=== PATIENT | female | born 1955 | race Caucasian/White ===

== ENCOUNTER 2017-06-16 20:06 | Emergency (ER) | payer OTHER ==
[~2017-06-16] VITALS: Ht 157.5 cm; Wt 74.8 kg
[2017-06-16 20:07] VITALS: BP 155/100
[2017-06-16] MEDS ORDERED: LISINOPRIL20 MG PO (20:12)
[2017-06-16] MEDS ORDERED: MAXZIDE-25 MG1 EACH PO (20:13)
[2017-06-16] MEDS ORDERED: ARMOUR THYROID60 M1 (20:13)
[2017-06-16] MEDS ORDERED: SYNTHROID100 MCG PO (20:13)
[2017-06-16] MEDS ORDERED: VIIBRYD40 MG (20:13)
[2017-06-16] MEDS ORDERED: ALORA1 EAC1 TOP (20:14)
[2017-06-16] MEDS ORDERED: CLONIDINE0.1 (20:15)
[2017-06-16] MEDS ORDERED: PROGESTERONE100 MG (20:15)
[2017-06-16 21:56] LABS: HIV-1 P24 AG Nonreactive (Nonreactive)
[2017-06-19 00:11] LABS: HEP B SURFACE Ab(ANTI-HBS Reactive (()); HEPATITIS C VIRUS AB <0.1 (0.0-0.9)
== END 2017-06-16 22:43 | disposition home or self-care (01) ==
LOC: ER 20:06
PROVIDERS: Emergency Medicine
DX: S69.82XA Other specified injuries of left wrist, hand and finger(s), initial encounter (principal); I10 Essential (primary) hypertension; Z20.5 Contact with and (suspected) exposure to viral hepatitis; Z98.890 Other specified postprocedural states; W46.0XXA Contact with hypodermic needle, initial encounter; Y93.89 Activity, other specified; Y92.89 Other specified places as the place of occurrence of the external cause; Y99.8 Other external cause status; Z91.018 Allergy to other foods

== ENCOUNTER → 2019-05-08 | Outpatient (CLI) | payer OTHER ==
[~2019-05-08] MED LIST: ALORA1 EAC1 TOP; ARMOUR THYROID60 M1; CLONIDINE0.1; LISINOPRIL20 MG PO; MAXZIDE-25 MG1 EACH PO; PROGESTERONE100 MG; SYNTHROID100 MCG PO; VIIBRYD40 MG
== END ==
LOC: RAD 09:26
DX: S09.90XA Unspecified injury of head, initial encounter (principal); G23.8 Other specified degenerative diseases of basal ganglia; R90.82 White matter disease, unspecified; X58.XXXA Exposure to other specified factors, initial encounter; Y93.89 Activity, other specified; Y92.89 Other specified places as the place of occurrence of the external cause; Y99.8 Other external cause status

== ENCOUNTER 2019-05-27 18:46 | Emergency (ER) | payer OTHER ==
[~2019-05-27] VITALS: Ht 162.6 cm; Wt 83.9 kg
[2019-05-27 19:13] LABS: URINE BILIRUBIN NEGATIVE (Negative); URINE BLOOD NEGATIVE (Negative); URINE CLARITY CLEAR; URINE COLOR YELLOW; URINE GLUCOSE-RANDOM* NEGATIVE (Negative); URINE KETONES 1+ (Negative); URINE LEUKOCYTES-REFLEX NEGATIVE (Negative); URINE NITRITE-REFLEX NEGATIVE (Negative); URINE PROTEIN (DIPSTICK) NEGATIVE (Negative); URINE SPECIFIC GRAVITY 1.025 (1.005-1.035); URINE UROBILINOGEN 0.2 E.U./dl (0.2-1.0)
[2019-05-27 19:42] LABS: ANION GAP 9 mmol/L (7-16); BUN 18 mg/dL (7-18); CALCIUM 9.3 mg/dL (8.5-10.1); CHLORIDE 102 mmol/L (98-107); CO2 28 mmol/L (21-32); GLUCOSE 147 mg/dL (74-106); POTASSIUM 3.8 mmol/L (3.5-5.1); SODIUM 139 mmol/L (136-145)
[2019-05-27 19:53] LABS: ALBUMIN 4.2 g/dL (3.4-5.0); LIPASE 99 U/L (73-393); SGOT 28 U/L (15-37); SGPT 44 U/L (30-65); TOTAL BILIRUBIN 0.4 mg/dL (<0.1-1.0); TOTAL PROTEIN 7.5 g/dL (6.4-8.2); TROPONIN-I <0.06 ng/mL (<0.06)
[2019-05-27] MEDS ORDERED: NAPROSYN500 MG PO (20:24)
[2019-05-27] MEDS ORDERED: ANUSOL-HC25 MG RECTAL (20:24)
[2019-05-27] MEDS ORDERED: ONDANSETRON ODT8 MG PO (20:24)
[2019-05-27 20:57] VITALS: BP 187/97
--- NOTE | 2019-05-29 15:05 | EKG ---
[address] [place] [address] ELECTROCARDIOGRAM REPORT Name: DEWAYNE NEIL [id number] Admission: 05/27/19 Attend Phys: Discharge: 05/27/19 Date of : 59 Report #: [id number] THIS REPORT FOR: //name// [facility] ED Test Date: 2019-05-27 Test Time: 19:36:47 Pat Name: DEWAYNE NEIL Department: Room: Gender: F Mechanical Maintenance Engineer: Maryann : 1955 Requested By: Dillon Pal Order Number: [id number] MD: Allen Baldwin Measurements Intervals [place] Rate: 77 P: 18 GA: 157 QRS: -41 QRSD: 113 T: 1 QT: 422 QTc: 478 Interpretive Statements Sinus rhythm Left anterior fascicular block Borderline T abnormalities, anterior leads No previous ECG available for comparison Electronically Signed On 05-29-2019 15:05:41 CDT by Allen Baldwin [email or web address] <ELECTRONICALLY SIGNED> By: Allen Baldwin MD 05/29/19 1505 D: 09/1933 35 Allen Baldwin MD /ROB
== END 2019-05-27 20:58 | disposition home or self-care (01) ==
LOC: ER 18:46
PROVIDERS: Emergency Medicine
DX: R10.32 Left lower quadrant pain (principal); R10.31 Right lower quadrant pain; R19.7 Diarrhea, unspecified; I10 Essential (primary) hypertension; E66.9 Obesity, unspecified; Z68.31 Body mass index [BMI] 31.0-31.9, adult; Z98.890 Other specified postprocedural states; Z90.89 Acquired absence of other organs; Z91.018 Allergy to other foods

== ENCOUNTER → 2019-06-08 | Outpatient (CLI) | payer OTHER ==
[~2019-06-08] VITALS: Ht 162.6 cm; Wt 82.6 kg
[~2019-06-08] MED LIST changes: +ANUSOL-HC25 MG RECTAL; -ARMOUR THYROID60 M1; +ARMOUR THYROID60 M1 PO; -CLONIDINE0.1; +CLONIDINE0.1 PO; +LABETALOL HCL100 MG PO; +NAPROSYN500 MG PO; +NORFLEX100 MG PO; +ONDANSETRON ODT8 MG PO; +SYNTHROID75 MCG PO; +TRULICITY1.5 MG/0.5 SUBQ
--- NOTE | 2019-06-09 17:06 | PATH ---
[facility] [place] [address] PATHOLOGY RPT PROCEDURE Name: SUSIE NEIL Room #: REG ELIZABETH Chuyita.#: [id number] Admission: 06/08/19 Date of : 59 Discharge: Report #: [id number] Path Case #: [id number] [facility] Accession Number: [id number] . 01 Material submitted: . PART A: duodenum - DUODENAL BIOPSY R/O CELIAC PART B: stomach - ANTRUM BIOPSY R/O H PYLORI PART C: esophagus - DISTAL ESOPHAGUS R/O BARRETTS. Modifiers: distal PART D: ileum - ILEUM BIOPSY R/O CROHNS PART E: colon - RANDOM COLON BIOPSY R/O MICROSCOPIC COLITIS PART F: splenic flexure - SPLENIC FLEXURE POLYP PART G: colon - DESCENDING COLON INFLAMMATION. Modifiers: descending . 01 Clinical history: . Abdominal pain, nausea, bloody stool, gastritis, esophagitis, diverticulitis A. Rule out celiac B. Rule out H. pylori C. Rule out Jimenez's D. Rule out Crohn's E. Rule out microscopic colitis . 02 Diagnosis: A. Small bowel mucosa, duodenum R/O celiac, endoscopic biopsy: - Nonspecific changes including focal lamina propria hemorrhage as well as reactive changes. - Negative for villous blunting or increase in intraepithelial lymphocytes. . B. Gastric mucosa, antrum R/O H. pylori, endoscopic biopsy: - Mild chronic inflammation. - Negative for intestinal metaplasia or atrophy. - Negative for Helicobacter pylori (properly controlled immunohistochemical stain performed). . C. 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 - Negative for dysplasia. - Squamous mucosa with mild esophagitis. . D. Small bowel mucosa, ileum R/O Crohn's, endoscopic biopsy: - Small bowel mucosa with no significant diagnostic abnormalities. - Peyer's patch. . E. Large intestinal mucosa, random colon, endoscopic biopsy: - Focal nonspecific reactive hyperplastic changes. [address] [address] PATHOLOGY RPT PROCEDURE Name: SUSIE NEIL Room #: REG [facility] Chuyita.#: [id number] Admission: 06/08/19 Date of : 59 Discharge: Report #: [id number] Path Case #: [id number] - Negative for microscopic colitis. - Negative for active colitis. - Negative for dysplasia or malignancy. . F. Polyp, splenic flexure polyp, endoscopic biopsy: - Inflamed hyperplastic polyp. - Negative for dysplasia. . G. Large intestinal mucosa, descending colon inflammation, endoscopic biopsy: - Reactive hyperplastic changes with minimal increase in cellularity of the lamina propria. - Negative for increase in fibrosis. - Negative for active colitis. - Negative for dysplasia or malignancy. (IUV:lakshmi; 06/09/2019) QMS 06/09/2019 1348 Local . 02 Comment: C. The above diagnosis of Jimenez's esophagus is made due to presence of intestinal metaplasia and with the assumption that the biopsies were obtained from the columnar mucosa in the distal esophagus located at least 1 cm proximal to the top of the gastric folds as per the 2016 ACG guidelines. . E and G: Features are nonspecific, and may be due to a resolved episode of colitis, medication/drug-induced changes, bowel preparation, as well as chronic diverticulitis. Please correlate clinically and follow-up as indicated. (IUV:lakshmi; 06/09/2019) . 02 Electronically signed: . Ketty Corbin MD, Pathologist NPI- [id number] . 01 Gross description: . A. The specimen is received in formalin, labeled "Grussing, Susie, duodenal BX", is an irregular segment of fontaine soft tissue measuring 0.5 cm in greatest dimension. Entirely submitted in A1. . B. The specimen is received in formalin, labeled "Grussing, Susie, antrum BX", are two irregular segments of fontaine soft tissue measuring 0.3 cm and 0.5 cm in greatest dimension. Entirely submitted in B1. . C. The specimen is received in formalin, labeled "Grramírezing, Susie, distal esophagus BX", are few irregular fragments of perdue-fontaine soft tissue measuring 0.7 x 0.5 x 0.1 cm in aggregate. Entirely submitted in C1. [facility] [address] [place] [address] PATHOLOGY RPT PROCEDURE Name: SUSIE NEIL Room #: REG [facility]#: [id number] Admission: 06/08/19 Date of : 59 Discharge: Report #: [id number] Path Case #: [id number] . D. The specimen is received in formalin, labeled "Grussing, Susie, ileum BX", are two irregular segments of fontaine soft tissue measuring 0.2 cm and 0.3 cm in greatest dimension. Entirely submitted in D1. . E. The specimen is received in formalin, labeled "Grussing, Susie, random colon BX", are two irregular segments of fontaine soft tissue measuring 0.5 cm in greatest dimension each. Entirely submitted in E1. . F. The specimen is received in formalin, labeled "Grussing, Susie, splenic flexure polyp", is a segment of fontaine soft tissue measuring 0.2 cm in greatest dimension. Entirely submitted in F1. . G. The specimen is received in formalin, labeled "Grussing, Susie, descending colon, inflammation", are three irregular fragments of fontaine soft tissue measuring 0.5 x 0.4 x 0.1 cm in aggregate. Entirely submitted in G1. ([facility]; 06/08/2019) [facility] 06/08/[address] [place] [address] . 02 Pathologist provided ICD-10: K29.50, K22.70, K20.9, K63.5 . 02 CPT . 965116, 328208, 903903, 001514, 490223, 076317, 022736, V22366 Specimen Comment: A courtesy copy of this report has been sent to Specimen Comment: , . Specimen Comment: Report sent to / DR NICHOLE Performed at: [address], [place], [place] [id number] MD Sarwat Smith MD Phone: [phone] Performed at: [address] [id number] MD Ketty Corbin MD Phone: [phone]
== END | disposition home or self-care (01) ==
LOC: GI 11:52
DX: K62.5 Hemorrhage of anus and rectum (principal); K63.5 Polyp of colon; K57.30 Diverticulosis of large intestine without perforation or abscess without bleeding; K64.8 Other hemorrhoids; K29.50 Unspecified chronic gastritis without bleeding; K22.70 Barrett's esophagus without dysplasia; K20.9 Esophagitis, unspecified; K22.2 Esophageal obstruction; K44.9 Diaphragmatic hernia without obstruction or gangrene; I10 Essential (primary) hypertension; E78.5 Hyperlipidemia, unspecified; E03.9 Hypothyroidism, unspecified; Z98.890 Other specified postprocedural states; Z79.899 Other long term (current) drug therapy
CPT/HCPCS: 62110; 62900

== ENCOUNTER → 2019-08-03 | Outpatient (CLI) | payer OTHER ==
[~2019-08-03] VITALS: Ht 170.2 cm; Wt 81.6 kg
--- NOTE | 2019-08-06 11:07 | PATH ---
[facility] [address] [place] [address] PATHOLOGY RPT PROCEDURE Name: SUSIE NEIL Room #: REG ELIZABETH Boogie.#: [id number] Admission: 08/03/19 Date of : 59 Discharge: Report #: [id number] Path Case #: [id number] [facility] Accession Number: [id number] . 01 Material submitted: . esophagus - BIOPSY OF DISTAL ESOPHAGUS HX OF BARRETTS. Modifiers: distal . 01 Clinical history: . None provided . 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 - LOW GRADE DYSPLASIA IDENTIFIED; INDEFINITE FOR HIGH GRADE DYSPLASIA. - Squamous mucosa with mild esophagitis. . (IUV:lakshmi; 08/04/2019) QMS 08/06/2019 1021 Local . 02 Comment: Due to the presence of extensive inflammation identified as well as the the nuclear changes within the mucosa the findings are considered "indefinite for high grade dysplasia". . Dr. Carl Cotton and Dr. Rebeca Peterson have seen marketing sales representative slide of this case and concurs with my diagnosis. (IUV:lakshmi; 08/04/2019) . 02 Electronically signed: . Ketty Corbin MD, Pathologist NPI- [id number] . 01 Gross description: . Received in formalin labeled "Susie Neil, BX of distal esophagus, Hx of Jimenez's," are 3 segments of fontaine soft tissue measuring 0.6 x 0.6 x 0.3 cm in aggregate dimensions and ranging from 0.3 to 0.4 cm in maximum dimension. The specimen is submitted entirely in cassette A1. ([facility]; 08/03/2019) TOB/TOB 08/03/2019 2224 Local . 02 Pathologist provided ICD-10: K22.70, K20.9 . 02 CPT . [id number] [address] [address] PATHOLOGY RPT PROCEDURE Name: SUSIE NEIL Room #: REG [place] Boogie.#: [id number] Admission: 08/03/19 Date of : 59 Discharge: Report #: [id number] Path Case #: [id number] Specimen Comment: A courtesy copy of this report has been sent to [phone] Specimen Comment: Report sent to / DR NICHOLE Performed at: 01 [facility] [place] [id number] [facility] [address], [place], [place] [id number] MD Sarwat Smith MD Phone: [phone] Performed at: [address], [place], [place] [id number] MD Ketty Corbin MD Phone: [phone]
== END ==
LOC: GI 10:51
DX: K22.710 Barrett's esophagus with low grade dysplasia (principal); K20.9 Esophagitis, unspecified; K44.9 Diaphragmatic hernia without obstruction or gangrene; R12 Heartburn; I10 Essential (primary) hypertension; E11.9 Type 2 diabetes mellitus without complications; E03.9 Hypothyroidism, unspecified; E07.9 Disorder of thyroid, unspecified; Z98.890 Other specified postprocedural states; Z79.899 Other long term (current) drug therapy; Z79.4 Long term (current) use of insulin
CPT/HCPCS: 62110; 62900

== ENCOUNTER → 2019-08-21 | Outpatient (CLI) | payer OTHER | LOC: CAT 08:24 | PROVIDERS: Internal Medicine Gastroenterology | DX: Z01.812 Encounter for preprocedural laboratory examination (principal); R10.84 Generalized abdominal pain; K76.0 Fatty (change of) liver, not elsewhere classified; Z87.19 Personal history of other diseases of the digestive system; Z79.899 Other long term (current) drug therapy ==

== ENCOUNTER → 2019-09-24 | Outpatient (CLI) | payer OTHER | END | disposition home or self-care (01) | LOC: GI 06:21 | DX: K55.9 Vascular disorder of intestine, unspecified (principal); Z79.899 Other long term (current) drug therapy; Z98.890 Other specified postprocedural states ==

== ENCOUNTER → 2019-10-02 | Outpatient (CLI) | payer OTHER | LOC: ULTRA 15:22 | DX: K80.20 Calculus of gallbladder without cholecystitis without obstruction (principal) ==

== ENCOUNTER 2019-10-20 07:35 | Day surgery (SDC) | payer OTHER ==
[~2019-10-20] VITALS: Ht 162.6 cm; Wt 78.0 kg
[~2019-10-20 07:35] MED LIST changes: +LEVO-T100 MCG PO
[2019-10-20 08:25] LABS: MCH 27.2 pg (26.0-34.0); MCHC 32.5 g/dL (28.0-37.0); MCV 83.5 fL (80.0-100.0); RBC 5.15 mil/uL (4.20-5.00); RDW 15.2 % (10.5-14.5); WBC 7.1 thou/uL (4.0-11.0)
[2019-10-20 08:33] LABS: CALCIUM 9.6 mg/dL (8.5-10.1); CREATININE 1.1 mg/dL (0.6-1.0); POTASSIUM 3.9 mmol/L (3.5-5.1)
[2019-10-20 08:38] LABS: ALBUMIN 4.3 g/dL (3.4-5.0); TOTAL BILIRUBIN 0.5 mg/dL (<0.1-1.0); TOTAL PROTEIN 8.1 g/dL (6.4-8.2)
[2019-10-20 08:54] VITALS: BP 105/59
[2019-10-20] MEDS ORDERED: HYDROCODON-ACE1 EAC7 PO (13:09)
[2019-10-20] MEDS ORDERED: MIRALAX17 GM PO (13:09)
[2019-10-20] MEDS ORDERED: COLACE 100 MG100 MG PO (13:09)
[2019-10-20 13:58] VITALS: BP 105/59
[2019-10-20] MEDS ORDERED: PERCOCET 5-3251 EACH PO (14:06)
--- NOTE | 2019-10-21 17:07 | PATH ---
[facility] [address] [place] [address] PATHOLOGY RPT PROCEDURE Name: SUSIE NEIL Room #: DEP [facility]..#: [id number] Admission: 10/20/19 Date of : 59 Discharge: 10/20/19 Report #: [id number] Path Case #: [id number] [facility] Accession Number: [id number] . 01 Material submitted: . gallbladder - GALLBLADDER WITH STONE . 01 Clinical history: . Calculus of gallbladder without cholecystitis without obstruction . 02 Diagnosis: Gallbladder, cholecystectomy: - Mild chronic cholecystitis. - Cholelithiasis. . (IUV:mml; 10/21/2019) QL 10/21/2019 1349 Local . 02 Electronically signed: . Ketty Corbin MD, Pathologist NPI- [id number] . 01 Gross description: . The specimen is received in formalin, labeled "Susie Neil, gallbladder with stone". Received is a previously opened gallbladder measuring 9.5 x 2.8 x 1.0 cm in greatest dimensions displaying a pink-fontaine to pink-perdue serosal surface. Opening the specimen reveals a velvety, pink-fontaine mucosa with mild cholesterolosis with a gallbladder wall thickness of 0.1 cm. A single light green, granular calculus is present, and no masses or lesions are noted grossly. Phytopathologist sections, to include the proximal margin, are submitted in cassette A1. ([facility]; 10/20/2019) QAC/QAC 10/20/2019 1639 Local . 02 Microscopic: . . . 02 Pathologist provided ICD-10: K80.10 . 02 CPT . 946248 Specimen Comment: Report sent to Performed at: [address] [id number] MD Sarwat Smith MD Phone: [phone] [address] [place] [address] PATHOLOGY RPT PROCEDURE Name: SUSIE NEIL Room #: DEP [facility] Chuyita.#: [id number] Admission: 10/20/19 Date of : 59 Discharge: 10/20/19 Report #: [id number] Path Case #: [id number] Performed at: [address] [id number] MD Ketty Corbin MD Phone: [phone]
== END 2019-10-20 14:30 | disposition home or self-care (01) ==
LOC: OR 07:35 → TBA 07:35 → OR 10:02
PROVIDERS: Surgery
DX: K80.10 Calculus of gallbladder with chronic cholecystitis without obstruction (principal); I10 Essential (primary) hypertension; E11.9 Type 2 diabetes mellitus without complications; E03.9 Hypothyroidism, unspecified; Z98.890 Other specified postprocedural states; Z79.899 Other long term (current) drug therapy
CPT/HCPCS: 50010; 50101; 50249; 50411; 50555; 50558; 51489; 52265; 52266; 53307; 53310; 53312; 54022; 54118; 55245; 56462; 56525; 56526; 62110; 62900; 70005

== ENCOUNTER → 2020-04-13 | Outpatient (CLI) | payer OTHER ==
[~2020-04-13] MED LIST changes: +COLACE 100 MG100 MG PO; +HYDROCODON-ACE1 EAC7 PO; +MIRALAX17 GM PO; +PERCOCET 5-3251 EACH PO
== END ==
LOC: CAT 09:35
PROVIDERS: ATTEND Family Medicine
DX: K57.32 Diverticulitis of large intestine without perforation or abscess without bleeding (principal); D25.9 Leiomyoma of uterus, unspecified

== ENCOUNTER 2020-06-03 17:58 | Emergency (ER) | payer OTHER ==
[~2020-06-03] VITALS: Ht 162.6 cm; Wt 78.0 kg
[2020-06-03 19:30] VITALS: BP 163/79
== END 2020-06-03 19:30 | disposition home or self-care (01) ==
LOC: ER 17:58
DX: R19.7 Diarrhea, unspecified (principal); Z20.828 Contact with and (suspected) exposure to other viral communicable diseases; I10 Essential (primary) hypertension; E03.9 Hypothyroidism, unspecified; Z98.890 Other specified postprocedural states; Z79.899 Other long term (current) drug therapy; Z91.018 Allergy to other foods

== ENCOUNTER → 2020-06-13 | Outpatient (CLI) | payer OTHER | LOC: LAB 06-10 14:48 | PROVIDERS: ATTEND Hospitalist | DX: Z20.828 Contact with and (suspected) exposure to other viral communicable diseases (principal) ==

== ENCOUNTER → 2020-08-17 | Outpatient (CLI) | payer OTHER | LOC: LAB 01:12 → EH 01:12 | PROVIDERS: ATTEND Specialist | DX: Z20.828 Contact with and (suspected) exposure to other viral communicable diseases (principal) ==

== ENCOUNTER → 2020-08-23 | Outpatient (CLI) | payer OTHER | LOC: LAB 14:58 | PROVIDERS: ATTEND Specialist | DX: Z20.828 Contact with and (suspected) exposure to other viral communicable diseases (principal) ==

== ENCOUNTER → 2020-08-23 | Outpatient (CLI) | payer OTHER ==
[2020-08-23 14:31] LABS: BASOPHILS 1.3 % (0.0-2.0); EOSINOPHILS 4.1 % (0.0-3.0); HEMOGLOBIN 14.4 gm/dL (12.0-15.0); LYMPHOCYTES 22.7 % (24.0-44.0); MCHC 32.8 g/dL (28.0-37.0); MCV 85.5 fL (80.0-100.0); MONOCYTES 11.5 % (1.0-8.0); PLATELET COUNT 306 thou/uL (150-400); POLYS 60.4 % (36.0-66.0); RBC 5.14 mil/uL (4.20-5.00); RDW 15.5 % (10.5-14.5); URINE BILIRUBIN NEGATIVE (Negative); URINE BLOOD TRACE (Negative); URINE CLARITY CLEAR; URINE COLOR YELLOW; URINE GLUCOSE-RANDOM* NEGATIVE (Negative); URINE KETONES NEGATIVE (Negative); URINE LEUKOCYTES-REFLEX NEGATIVE (Negative); URINE NITRITE-REFLEX NEGATIVE (Negative); URINE PROTEIN (DIPSTICK) NEGATIVE (Negative); URINE SPECIFIC GRAVITY <= 1.005 (1.005-1.035); URINE UROBILINOGEN 0.2 E.U./dl (0.2-1.0); WBC 6.5 thou/uL (4.0-11.0)
[2020-08-23 15:12] LABS: ALBUMIN 4.1 g/dL (3.4-5.0); CALCIUM 9.6 mg/dL (8.5-10.1); CREATININE 0.8 mg/dL (0.6-1.0); POTASSIUM 4.1 mmol/L (3.5-5.1); TOTAL BILIRUBIN 0.4 mg/dL (0.2-1.0); TOTAL PROTEIN 7.9 g/dL (6.4-8.2)
== END ==
LOC: LAB 13:31
PROVIDERS: ATTEND Nurse Practitioner
DX: R53.82 Chronic fatigue, unspecified (principal)

== ENCOUNTER → 2020-09-05 | Outpatient (CLI) | payer OTHER ==
[2020-09-05 16:33] LABS: CHOLESTEROL 300 mg/dL (<200); HDL CHOLESTEROL 41 mg/dL (>40); TC:HDL 7.3 Ratio (Not establshd); TRIGLYCERIDE 484 mg/dL (<150); VLDL 97 mg/dL (<40)
== END ==
LOC: LAB 15:08
PROVIDERS: ATTEND Nurse Practitioner
DX: E78.00 Pure hypercholesterolemia, unspecified (principal)

== ENCOUNTER → 2020-09-05 | Outpatient (CLI) | payer OTHER | LOC: LAB 15:01 | PROVIDERS: ATTEND Specialist | DX: Z01.812 Encounter for preprocedural laboratory examination (principal); Z20.828 Contact with and (suspected) exposure to other viral communicable diseases ==

== ENCOUNTER → 2020-09-15 | Outpatient (CLI) | payer OTHER | LOC: LAB 13:44 | PROVIDERS: ATTEND Specialist | DX: Z20.822 Contact with and (suspected) exposure to COVID-19 (principal) ==

== ENCOUNTER → 2020-09-15 | Outpatient (CLI) | payer OTHER ==
[2020-09-15 15:08] LABS: URINE BILIRUBIN NEGATIVE (Negative); URINE BLOOD NEGATIVE (Negative); URINE CLARITY CLEAR; URINE COLOR YELLOW; URINE GLUCOSE-RANDOM* NEGATIVE (Negative); URINE KETONES NEGATIVE (Negative); URINE LEUKOCYTES-REFLEX NEGATIVE (Negative); URINE NITRITE-REFLEX NEGATIVE (Negative); URINE PROTEIN (DIPSTICK) TRACE (Negative); URINE SPECIFIC GRAVITY 1.015 (1.005-1.035); URINE UROBILINOGEN 0.2 E.U./dl (0.2-1.0)
[2020-09-15 15:13] LABS: ABSOLUTE NEUTROPHILS 7.2 thou/uL (1.4-8.2); BASOPHILS 0.7 % (0.0-2.0); EOSINOPHILS 0.4 % (0.0-3.0); HEMATOCRIT 45.5 % (37.0-47.0); LYMPHOCYTES 15.9 % (24.0-44.0); MCH 28.3 pg (26.0-34.0); MCV 85.9 fL (80.0-100.0); MONOCYTES 5.2 % (1.0-8.0); PLATELET COUNT 390 thou/uL (150-400); POLYS 77.8 % (36.0-66.0); RDW 15.8 % (10.5-14.5); WBC 9.2 thou/uL (4.0-11.0)
[2020-09-15 15:32] LABS: ALBUMIN 4.2 g/dL (3.4-5.0); ANION GAP 11 mmol/L (7-16); BUN 22 mg/dL (7-18); CALCIUM 9.5 mg/dL (8.5-10.1); CHLORIDE 100 mmol/L (98-107); CHOLESTEROL 242 mg/dL (<200); CO2 27 mmol/L (21-32); CREATININE 0.9 mg/dL (0.6-1.0); GLUCOSE 165 mg/dL (74-106); HDL CHOLESTEROL 56 mg/dL (>40); LDL CHOLESTEROL 148 mg/dL (<100); POTASSIUM 4.4 mmol/L (3.5-5.1); SGOT 15 U/L (15-37); SGPT 34 U/L (30-65); SODIUM 138 mmol/L (136-145); TC:HDL 4.3 Ratio (Not establshd); TOTAL BILIRUBIN 0.3 mg/dL (0.2-1.0); TOTAL PROTEIN 8.1 g/dL (6.4-8.2); TRIGLYCERIDE 192 mg/dL (<150); VLDL 38 mg/dL (<40)
== END ==
LOC: LAB 13:31
PROVIDERS: ATTEND Family Medicine
DX: E78.5 Hyperlipidemia, unspecified (principal); R53.82 Chronic fatigue, unspecified

== ENCOUNTER → 2020-09-22 | Outpatient (CLI) | payer OTHER | LOC: LAB 12:21 | PROVIDERS: ATTEND Specialist | DX: Z20.822 Contact with and (suspected) exposure to COVID-19 (principal) ==

== ENCOUNTER → 2020-09-22 | Outpatient (CLI) | payer OTHER | LOC: SJCVCIMAG | PROVIDERS: ATTEND Internal Medicine | DX: R53.83 Other fatigue (principal); Z79.899 Other long term (current) drug therapy ==

== ENCOUNTER → 2020-10-03 | Outpatient (CLI) | payer OTHER ==
--- NOTE | 2020-10-04 20:33 | SLE ---
[facility] [place] [address] POLYSOMNOGRAPHY STUDY Name: DEWAYNE NEIL Room #: REG [facility].#: [id number] Admission: 10/03/20 Attend Phys: Camacho Peterson MD Discharge: Date of : 59 Report #: [id number] THIS REPORT FOR: cc: Rony Juarez MD, Neal A. MD Khan,Camacho Esparza MD ~ DATE OF SERVICE: 10/03/2020 SLEEP STUDY ATTENDING PHYSICIAN: Dr. Maxx Pino The patient is a 64-year-old who weighs 188 pounds with a BMI of 32.3. The patient has severe subjective hypersomnia with an Mcgregor score of 19. The patient underwent diagnostic sleep study performed at [facility]. During the night study, the patient spent 488 minutes in bed and slept for 452 minutes with a sleep efficiency of 93%. Sleep latency was 2.3 minutes with a REM latency of 168 minutes. Sleep architecture showed normal stage 1 and stage 2 sleep, increased slow wave and reduced REM sleep. During the night of the study, the patient had 17 obstructive apneas, 1 mixed apnea, no central apneas and 125 hypopneas. The patient's AHI was 18.9 per hour with a REM AHI of 41 per hour. The patient's supine AHI was 42 per hour. EKG monitoring revealed an average heart rate of 67 beats per minute. No sustained arrhythmias observed. No clinically significant PLM seen. Nocturnal oximetry study revealed an average oxygen saturation of 93% with lowest of 69%. Fifteen minutes were spent with oxygen saturation of less than 89% and another 2 minutes with saturation of less than 79%. Due to low AHI, the patient did not meet the split night criteria for CPAP initiation. IMPRESSION: 1. Moderate obstructive sleep apnea with worsening during REM sleep. Total AHI 18.9 per hour with a REM AHI of 41 per hour. 2. Nocturnal hypoxia secondary to obstructive sleep apnea. 3. No clinically significant periodic limb movements. RECOMMENDATIONS: 1. The patient has severe subjective hypersomnia with an Mcgregor score of 19. [facility] [address] [place] [address] POLYSOMNOGRAPHY STUDY Name: DEWAYNE NEIL Room #: REG [facility]#: [id number] Admission: 10/03/20 Attend Phys: Camacho Peterson MD Discharge: Date of : 59 Report #: [id number] The patient should return to the sleep lab for CPAP titration study. 2. Once the patient is optimally treated with CPAP, then follow up in 4-6 weeks to assess compliance and to document clinical improvement. 3. Weight loss is advised. 4. Avoid [employer] depressants. 5. Cautioned regarding driving until symptoms of sleep apnea resolve with the use of CPAP. <ELECTRONICALLY SIGNED> By: Camacho Peterson MD 10/04/202032 42 1854 Camacho Peterson MD /saul
== END ==
LOC: SLEEPLAB 10-02 09:55
PROVIDERS: ATTEND Internal Medicine Critical Care Medicine
DX: G47.33 Obstructive sleep apnea (adult) (pediatric) (principal); G47.10 Hypersomnia, unspecified

== ENCOUNTER → 2020-11-21 | Outpatient (CLI) | payer OTHER | LOC: MRI 08:39 | PROVIDERS: ATTEND Physical Medicine & Rehabilitation Sports Medicine | DX: M51.35 Other intervertebral disc degeneration, thoracolumbar region (principal); M16.11 Unilateral primary osteoarthritis, right hip; M41.86 Other forms of scoliosis, lumbar region; M48.07 Spinal stenosis, lumbosacral region ==

== ENCOUNTER → 2020-11-30 | Outpatient (CLI) | payer OTHER | LOC: LAB 09:50 | PROVIDERS: ATTEND Family Medicine | DX: R30.0 Dysuria (principal) ==

== ENCOUNTER → 2021-01-05 | Outpatient (CLI) | payer OTHER ==
[2021-01-05 11:11] LABS: CALCIUM 9.5 mg/dL (8.5-10.1); CREATININE 1.2 mg/dL (0.6-1.0); POTASSIUM 3.8 mmol/L (3.5-5.1)
== END ==
LOC: LAB 10:19
PROVIDERS: ATTEND Internal Medicine
DX: I10 Essential (primary) hypertension (principal)

== ENCOUNTER → 2021-01-06 | Outpatient (CLI) | payer OTHER | LOC: SJCVCIMAG 07:28 | PROVIDERS: ATTEND Internal Medicine | DX: I10 Essential (primary) hypertension (principal) ==

== ENCOUNTER → 2021-02-03 | Outpatient (CLI) | payer OTHER ==
[2021-02-03 10:49] LABS: CALCIUM 8.8 mg/dL (8.5-10.1); CREATININE 0.9 mg/dL (0.6-1.0); POTASSIUM 4.7 mmol/L (3.5-5.1)
== END ==
LOC: LAB 09:57
PROVIDERS: ATTEND Internal Medicine
DX: I10 Essential (primary) hypertension (principal)

== ENCOUNTER → 2021-02-27 | Outpatient (CLI) | payer OTHER ==
[~2021-02-27] MED LIST changes: +ANDRODERM1 EAC2 IM; +DILTIAZEM ER180 M2 PO; +IRON18 M1 PO; +MINIVELLE1 EAC1 TRANSDERM; +PROGESTERO50 MG/1 M3 PO; +TRANEXAMIC ACI650 MG PO
== END ==
LOC: ULTRA 17:49
PROVIDERS: ATTEND Obstetrics & Gynecology
DX: D25.9 Leiomyoma of uterus, unspecified (principal); N95.0 Postmenopausal bleeding; N85.2 Hypertrophy of uterus

== ENCOUNTER 2021-03-03 17:30 | Inpatient (IN) | payer OTHER ==
[~2021-03-03] VITALS: Ht 152.4 cm; Wt 83.0 kg
[~2021-03-03 17:30] MED LIST changes: -ANDRODERM1 EAC2 IM; -DILTIAZEM ER180 M2 PO; -IRON18 M1 PO; -MINIVELLE1 EAC1 TRANSDERM; -PROGESTERO50 MG/1 M3 PO; -TRANEXAMIC ACI650 MG PO
[2021-03-03 17:35] VITALS: BP 134/79
[2021-03-03] MEDS ORDERED: IRON18 M1 PO (17:57)
[2021-03-03] MEDS ORDERED: TRANEXAMIC ACI650 MG PO (17:58)
[2021-03-03] MEDS ORDERED: DILTIAZEM ER180 M2 PO (17:58)
[2021-03-03] MEDS ORDERED: PROGESTERO50 MG/1 M3 PO (17:59)
[2021-03-03] MEDS ORDERED: MINIVELLE1 EAC1 TRANSDERM (17:59)
[2021-03-03] MEDS ORDERED: ANDRODERM1 EAC2 IM (18:00)
[2021-03-03 18:37] LABS: HEMATOCRIT 35.3 % (37.0-47.0); HEMOGLOBIN 11.7 gm/dL (12.0-15.0); MCH 28.7 pg (26.0-34.0); MCHC 33.2 g/dL (28.0-37.0); MCV 86.4 fL (80.0-100.0); RBC 4.08 mil/uL (4.20-5.00); RDW 16.1 % (10.5-14.5); WBC 7.4 thou/uL (4.0-11.0)
[2021-03-03 18:47] LABS: CALCIUM 8.4 mg/dL (8.5-10.1); CREATININE 0.8 mg/dL (0.6-1.0); POTASSIUM 4.1 mmol/L (3.5-5.1)
[2021-03-03 18:59] LABS: ALBUMIN 3.6 g/dL (3.4-5.0); TOTAL BILIRUBIN 0.3 mg/dL (0.2-1.0); TOTAL PROTEIN 6.7 g/dL (6.4-8.2)
[2021-03-03 19:00] LABS: URINE BILIRUBIN NEGATIVE (Negative); URINE BLOOD NEGATIVE (Negative); URINE CLARITY CLEAR; URINE COLOR YELLOW; URINE GLUCOSE-RANDOM* NEGATIVE (Negative); URINE KETONES NEGATIVE (Negative); URINE LEUKOCYTES-REFLEX NEGATIVE (Negative); URINE NITRITE-REFLEX NEGATIVE (Negative); URINE PROTEIN (DIPSTICK) NEGATIVE (Negative); URINE UROBILINOGEN 0.2 E.U./dl (0.2-1.0)
[2021-03-04 01:56] LABS: APTT 22.7 Seconds (24.5-32.8); INR 0.93; PROTIME 10.2 Seconds (10.5-12.1)
[2021-03-04 03:24] VITALS: BP 150/81
[2021-03-04 04:14] VITALS: BP 155/62
[2021-03-04] MEDS ORDERED: TESTOSTERO200 MG/1 M IM (08:10)
[2021-03-04 08:12] VITALS: BP 156/82
[2021-03-04] MEDS ORDERED: HYDROCHLOROTH12.5 M1 PO (08:14)
[2021-03-04] MEDS ORDERED: TRIAMTERENE50 MG PO (08:17)
[2021-03-04] MEDS ORDERED: MEDROL4 M1 PO (10:13)
[2021-03-04 11:41] VITALS: BP 146/91
[2021-03-04 12:30] VITALS: BP 146/91
== END 2021-03-04 13:24 | disposition home or self-care (01) | DRG 102 ==
LOC: ER 17:30 → EROBS 03-04 03:01 → 3W 03-04 04:34
PROVIDERS: Nurse Practitioner Family; ADMIT Hospitalist; ATTEND Hospitalist
DX: G43.909 Migraine, unspecified, not intractable, without status migrainosus (principal); G08 Intracranial and intraspinal phlebitis and thrombophlebitis; I10 Essential (primary) hypertension; N93.8 Other specified abnormal uterine and vaginal bleeding; E89.0 Postprocedural hypothyroidism; Z88.8 Allergy status to other drugs, medicaments and biological substances; Z79.82 Long term (current) use of aspirin; Z79.899 Other long term (current) drug therapy
CPT/HCPCS: 10879

== ENCOUNTER → 2021-03-08 | Outpatient (CLI) | payer OTHER ==
[~2021-03-08] MED LIST changes: +ANDRODERM1 EAC2 IM; +DILTIAZEM ER180 M2 PO; +HYDROCHLOROTH12.5 M1 PO; +IRON18 M1 PO; +MEDROL4 M1 PO; +MINIVELLE1 EAC1 TRANSDERM; +PROGESTERO50 MG/1 M3 PO; +TESTOSTERO200 MG/1 M IM; +TRANEXAMIC ACI650 MG PO; +TRIAMTERENE50 MG PO
== END ==
LOC: ULTRA 13:30
PROVIDERS: ATTEND Obstetrics & Gynecology
DX: D25.9 Leiomyoma of uterus, unspecified (principal); N85.2 Hypertrophy of uterus; R93.89 Abnormal findings on diagnostic imaging of other specified body structures; N95.0 Postmenopausal bleeding

== ENCOUNTER 2021-08-25 14:33 | Emergency (ER) | payer OTHER ==
[~2021-08-25] VITALS: Ht 162.6 cm; Wt 81.7 kg
[2021-08-25 17:15] LABS: URINE BILIRUBIN NEGATIVE (Negative); URINE BLOOD NEGATIVE (Negative); URINE CLARITY CLEAR; URINE COLOR YELLOW; URINE GLUCOSE-RANDOM* NEGATIVE (Negative); URINE KETONES NEGATIVE (Negative); URINE LEUKOCYTES-REFLEX TRACE (Negative); URINE NITRITE-REFLEX NEGATIVE (Negative); URINE PROTEIN (DIPSTICK) NEGATIVE (Negative); URINE SPECIFIC GRAVITY 1.015 (1.005-1.035); URINE UROBILINOGEN 0.2 E.U./dl (0.2-1.0)
[2021-08-25 18:21] LABS: ABSOLUTE NEUTROPHILS 3.3 thou/uL (1.4-8.2); HEMATOCRIT 44.4 % (37.0-47.0); HEMOGLOBIN 14.7 gm/dL (12.0-15.0); LYMPHOCYTES 31.4 % (24.0-44.0); MCH 28.8 pg (26.0-34.0); MCHC 33.1 g/dL (28.0-37.0); MCV 87.1 fL (80.0-100.0); MONOCYTES 17.8 % (1.0-8.0); PLATELET COUNT 305 thou/uL (150-400); POLYS 45.8 % (36.0-66.0); RDW 15.9 % (10.5-14.5); WBC 7.3 thou/uL (4.0-11.0)
[2021-08-25 18:24] LABS: CALCIUM 9.4 mg/dL (8.5-10.1); CREATININE 0.8 mg/dL (0.6-1.0); POTASSIUM 3.8 mmol/L (3.5-5.1)
[2021-08-25 18:33] LABS: ALBUMIN 4.2 g/dL (3.4-5.0); TOTAL BILIRUBIN 0.3 mg/dL (0.2-1.0); TOTAL PROTEIN 7.9 g/dL (6.4-8.2)
[2021-08-25] MEDS ORDERED: BENTYL 10 MG CA10 M1 PO ×2 (20:11→20:27)
[2021-08-25 20:31] VITALS: BP 136/77
== END 2021-08-25 20:32 | disposition home or self-care (01) ==
LOC: ER 14:33
PROVIDERS: Emergency Medicine
DX: D25.9 Leiomyoma of uterus, unspecified (principal); R10.31 Right lower quadrant pain; R11.0 Nausea; I10 Essential (primary) hypertension; E03.9 Hypothyroidism, unspecified; Z98.890 Other specified postprocedural states; Z86.718 Personal history of other venous thrombosis and embolism; Z79.899 Other long term (current) drug therapy; Z79.891 Long term (current) use of opiate analgesic; Z79.1 Long term (current) use of non-steroidal anti-inflammatories (NSAID); Z91.018 Allergy to other foods

== ENCOUNTER → 2021-10-27 | Outpatient (CLI) | payer OTHER ==
[~2021-10-27] MED LIST changes: +BENTYL 10 MG CA10 M1 PO
== END ==
LOC: MRI 15:52
PROVIDERS: ATTEND Physical Medicine & Rehabilitation Sports Medicine
DX: S83.242A Other tear of medial meniscus, current injury, left knee, initial encounter (principal); S83.282A Other tear of lateral meniscus, current injury, left knee, initial encounter; M25.462 Effusion, left knee; M17.12 Unilateral primary osteoarthritis, left knee; X58.XXXA Exposure to other specified factors, initial encounter; Y93.89 Activity, other specified; Y92.89 Other specified places as the place of occurrence of the external cause; Y99.8 Other external cause status